=== PATIENT | female | born 1945 | race Caucasian/White ===

== ENCOUNTER 2016-11-11 07:52 | Day surgery (SDC) | payer MEDICARE ==
[~2016-11-11] VITALS: Ht 167.6 cm; Wt 111.8 kg
[~2016-11-11 07:52] MED LIST: ACETAMINOPHEN 500 MG TAB (TYLENOL) PO PRN; AML2.5T PO; ASPI-860 PO; ASPI325T4 PO; ATOR10TA56 PO; CALC600T19 PO; CARV12.5 PO; CARV25TA30 PO; CHOL1CRY2 PO; CHONDROITIN/HYALURONATE (DISCOVISC) 1 ML SYR IO ONE; CIPR-226 PO; DOCU-243 PO; FAMO-119 PO; FRSM20T PO; FURO-124 PO; HOME MEDICATION OD SCH; LISI5TAB14 PO; NIAC500T24 PO; NITR0.4T7 SL; PHENYLEPHRINE/KETOROLAC 4 ML VIAL IO ONE; POTA10CA2 PO; PSYL0.525 PO; RANI-419 PO; SODIUM CHLORIDE FLUSH 3 ML SYR IV PRN; SOTA80TA PO; TETRACAINE 0.5% OPHTHALMIC SOLUTION 4 ML BTL ONE; UBID1CAP51 PO; diphenhydrAMINE 50 MG/ML INJ (BENADRYL) IV PRN
[2016-11-11 08:22] VITALS: BP 161/83
[2016-11-11] MEDS: LIDOCAINE 3.5% OPHTH GEL (AKTEN) 1 ML BTL OD SCH ×3 (08:25→08:50)
[2016-11-11] MEDS ORDERED: MIDAZOLAM 2 MG/2 ML (VERSED) VIAL ONE (08:39)
[2016-11-11] MEDS: CATARACT PRE-OP EYE DROPS 0.5ML SYRINGE OD SCH ×2 (08:39→08:51)
[2016-11-11] MEDS ORDERED: BSS OPHTHALMIC IRRIGATION SOLUTION 15 ML BTL ONE (09:16)
[2016-11-11] MEDS ORDERED: CHONDROITIN/HYALURONATE (VISCOAT) 0.5 ML SYR IO ONE (09:24)
[2016-11-11 09:46] VITALS: BP 148/66
== END 2016-11-11 10:21 | disposition home or self-care (01) ==
LOC: ASC 07:52
PROVIDERS: ATTEND Ophthalmology
DX: H25.11 Age-related nuclear cataract, right eye (principal); H40.033 Anatomical narrow angle, bilateral; I10 Essential (primary) hypertension; E78.5 Hyperlipidemia, unspecified; I25.2 Old myocardial infarction; Z95.2 Presence of prosthetic heart valve
CPT/HCPCS: 36415; 66984; 84132; 93005; A9270; C9447; J2250; V2632

== ENCOUNTER 2016-11-25 08:33 | Day surgery (SDC) | payer MEDICARE ==
[~2016-11-25] VITALS: Ht 167.6 cm; Wt 111.0 kg
[~2016-11-25 08:33] MED LIST changes: -HOME MEDICATION OD SCH
--- OUTSIDE RECORDS SUMMARY | 2016-11-25 08:37 | XMS REPORT | Continuity of Care Document ---
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 11/11/16 8:22am Other Pt statees daughter Kaylynn Henriquez is DPOA 11/11/16 8:22am Problems Active Problems Medical Problem Onset Date Status Cataract of right eye Unknown Acute Chest pain 09/29/2015 Acute Tachyarrhythmia 09/29/2015 Acute Medications Current Home Medications Medication Dose Units Route Directions Days/Qty Instructions Start Date Calcium Carbonate 600 Mg 600 Mg ORAL As Directed 05/16/15 Cholecalciferol (Vitamin D3) 1 Gm 1,000 Unit ORAL Daily 05/16/15 Nitroglycerin 0.4 Mg 0.4 Mg SUBLINGUAL As Needed 09/29/15 Furosemide 20 Mg 20 Mg ORAL Daily 09/29/15 Carvedilol (Coreg) 25 Mg 12.5 Mg ORAL Daily 09/29/15 Lisinopril (Zestril) 5 Mg 5 Mg ORAL Twice A Day 90 11/08/16 Sotalol Hcl 80 Mg 40 Mg ORAL Twice A Day 11/08/16 Atorvastatin Calcium 10 Mg 10 Mg ORAL Bedtime 30 11/08/16 Ubidecarenone/Vit E Acetate 1 Each 1 Each ORAL Daily 11/08/16 Psyllium Husk 0.52 Gm 0.52 Gm ORAL Twice A Day 11/08/16 Aspirin 325 Mg 325 Mg ORAL Bedtime 11/08/16 Ranitidine Hcl 75 Mg 75 Mg ORAL As Needed 11/08/16 Past Home Medications Medication Directions Ordered Status Niacinamide 500 Mg Tablet, 500 Mg Oral As Directed 05/16/15 Discontinued Ciprofloxacin Hcl 250 Mg Tablet, 250 Mg Oral As Directed 05/16/15 Discontinued Carvedilol (Coreg) 12.5 Mg Tablet, 12.5 Mg Oral As Directed 05/16/15 Discontinued Aspirin 81 Mg Tablet.dr, 81 Mg Oral As Directed 05/16/15 Discontinued Potassium Chloride 10 Meq Capsule.er, 10 Meq Oral As Directed 05/16/15 Discontinued Amlodipine Besylate (Norvasc) 2.5 Mg Tablet, 2.5 Mg Oral As Directed Discontinued Docusate Sodium 100 Mg Cap, 100 Mg Oral As Directed 05/16/15 Discontinued Famotidine 20 Mg Tablet, 20 Mg Oral As Directed 05/16/15 Discontinued Furosemide 40 Mg Tablet, 40 Mg Oral As Directed 05/16/15 Discontinued Social History Social History Problem Response Recorded Date/Time Onset Date Status Occupation or Former Occupation retired 11/11/2016 8:23am Query Response Start Date Stop Date Smoking Status Former smoker Hospital Discharge Instructions No hospital discharge instructions. Plan of Care Discharge Date 11/11/16 10:21am Prescriptions See Medication Section Functional Status No functional status results. Allergies, Adverse Reactions, Alerts No known allergies. Immunizations Name Given Type Status Date Influenza Vaccine Received if Current 05/25/15 Historical Historical Vital Signs Acute Vital Signs Vital Response Date/Time Temperature (Fahrenheit) 97.0 11/11/2016 9:46am Pulse 55 bpm 11/11/2016 9:46am Respirations 18 11/11/2016 9:46am Height 5 ft 6 in Weight 246 lb Body Mass Index 39.0 kg/m^2 Results Laboratory Results Test Name Result Units Flags Reference Collection Date/Time Result Date/ Time Comments Potassium Level 4.5 mmol/L 3.5-5.1 11/11/2016 8:46am 11/11/2016 8:57am Procedures No known history of procedures. Encounters Encounter Location Arrival/Admit Date Discharge/Depart Date Attending Provider Departed [facility] 11/11/16 7:52am 11/11/16 10: 21am VAMSI OWEN MD
[2016-11-25 09:16] VITALS: BP 141/75
[2016-11-25] MEDS: LIDOCAINE 3.5% OPHTH GEL (AKTEN) 1 ML BTL OS SCH ×4 (09:39→10:13)
[2016-11-25] MEDS: HOME MEDICATION OS SCH ×3 (09:51→10:14)
[2016-11-25] MEDS: CATARACT PRE-OP EYE DROPS 0.5ML SYRINGE OS SCH ×3 (09:51→10:14)
[2016-11-25] MEDS ORDERED: MIDAZOLAM 2 MG/2 ML (VERSED) VIAL ONE (10:35)
[2016-11-25] MEDS ORDERED: CHONDROITIN/HYALURONATE (VISCOAT) 0.5 ML SYR IO ONE (10:38)
[2016-11-25 11:12] VITALS: BP 167/69
== END 2016-11-25 12:00 | disposition home or self-care (01) ==
LOC: ASC 08:33
PROVIDERS: ATTEND Ophthalmology
DX: I10 Essential (primary) hypertension (principal); E78.5 Hyperlipidemia, unspecified; M19.90 Unspecified osteoarthritis, unspecified site; I25.2 Old myocardial infarction; Z79.899 Other long term (current) drug therapy; J44.9 Chronic obstructive pulmonary disease, unspecified; E66.9 Obesity, unspecified; Z87.891 Personal history of nicotine dependence
CPT/HCPCS: 66984; A9270; C9447; J2250; V2632